=== PATIENT | female | born 1950 | race Caucasian/White ===

== ENCOUNTER → 2016-07-06 | Outpatient (CLI) | payer OTHER ==
[~2016-07-06] MED LIST: ACCUPRIL PO; ACIPHEX; ACTIGALL300 MG PO; ADVAIRDISKUS IH; ALBUTEROL NEB IH; ALBUTEROL2.5 MG/0.1 INH; ALEVE220 MG PO; AMITIZA8 MCG PO; AUGMENTIN 875875 M1 PO; AUGMENTIN 875875 MG PO; BACTRIM DS TAB1 EACH PO; BENADRYL25 MG PO; CELEBREX 200 M200 M1 PO; CELEBREX 200 M200 MG PO; CELECOXIB400 MG PO; CELLCEPT500 MG PO; CENTRUM COMPLE1 EACH PO; CENTRUM SILVER1 EAC4 PO; CINNAMON PO; CINNAMON500 MG PO; CIPRO500 MG PO; CLEOCIN HCL150 MG PO; CLEOCIN HCL300 MG PO; CRANBERRY 4001 EACH PO; CYMBALTA30 MG PO; CYMBALTA60 MG PO; DEXILANT60 MG PO; DOXYCYCLINE 10100 M1 PO; DOXYCYCLINE 10100 MG PO; E-MYCIN250 MG PO; ERYTHROMYCIN250 MG PO; FIBERCON625 M1 PO; FINACEA50 GM TOP; FINACEA50 GM TP; FLOMAX0.4 MG PO; FLOVENT HFA 2220 MC1 INH; GENTAMICIN 0.1%15 G2; GENTAMICIN 0.1%15 G2 TOP; GLUCOPHAGE1000 MG PO; GUAIFENESIN400 MG PO; HYDROCORTISON28.4 G1 TP; HYDROXYCHLOROQ200 M1 PO; IVIG IV; KEFLEX500 MG PO; LIDODERM 5%1 PATC1 TRANSDERM; LIDODERM 5%1 PATCH TOP; LINZESS290 MCG PO; LORTAB 5 MG/5001 TA1 PO; LORTAB 5-500 T1 EAC1 PO; MACROBID 100 M100 M1 PO; MEROPENEM500 MG IV; METAMUCIL0.52 GM PO; NEURONTIN800 MG PO; NEXIUM40 MG PO; OMEGA PO; ONDANSETRON HCL4 M2 PO; OXYCONTIN10 M1 PO; OXYCONTIN15 MG PO; PENICILLIN V P500 MG PO; PENICILLIN VK500 M1 PO; PIPERACIL-TAZO4.5 G1 IV; PREDNISONE 20 M20 MG PO; PREVACID30 M2 PO; PREVACID30 MG PO; PRILOSEC40 MG PO; QUINU10 PD PO; RESTASIS1 EACH GTT; ROCEPHIN 1 GM VL1 G1 IVPB; ROCEPHIN 11 GM/1001 IV; SUDAFED 12 HR120 MG PO; TYLENOL325 MG PO; VANCO IV; VELVET GLOVE PO; VITAMIN D 11000 UNIT PO; VITAMIN D1000 UNI1 PO; VITAMIN D10000 UNIT PO; VYTONE TOP; ZOFRAN ODT4 MG PO; [UNRECOGNIZED DRUG - OTHER]; [UNRECOGNIZED DRUG - OTHER] PO; amoxicillin PO
[2016-07-06 13:57] VITALS: BP 153/79
== END ==
LOC: OPONC 02:03
DX: M35.00 Sjogren syndrome, unspecified (principal); G62.9 Polyneuropathy, unspecified
CPT/HCPCS: 95000; 95001

== ENCOUNTER → 2016-07-07 | Outpatient (CLI) | payer OTHER | LOC: HYPER 06:59 | DX: T81.89XD Other complications of procedures, not elsewhere classified, subsequent encounter (principal); E11.9 Type 2 diabetes mellitus without complications; I70.234 Atherosclerosis of native arteries of right leg with ulceration of heel and midfoot; E66.01 Morbid (severe) obesity due to excess calories; G62.9 Polyneuropathy, unspecified; Z90.710 Acquired absence of both cervix and uterus; Z72.89 Other problems related to lifestyle; Y83.8 Other surgical procedures as the cause of abnormal reaction of the patient, or of later complication, without mention of misadventure at the time of the procedure ==

== ENCOUNTER → 2016-07-28 | Outpatient (CLI) | payer OTHER | LOC: HYPER 07:07 | DX: T81.31XD Disruption of external operation (surgical) wound, not elsewhere classified, subsequent encounter (principal); I70.234 Atherosclerosis of native arteries of right leg with ulceration of heel and midfoot; R60.9 Edema, unspecified; E66.01 Morbid (severe) obesity due to excess calories; Z47.89 Encounter for other orthopedic aftercare; Y83.8 Other surgical procedures as the cause of abnormal reaction of the patient, or of later complication, without mention of misadventure at the time of the procedure ==

== ENCOUNTER → 2016-09-23 | Outpatient (CLI) | payer OTHER | LOC: HYPER 07:39 | DX: T81.32XA Disruption of internal operation (surgical) wound, not elsewhere classified, initial encounter (principal); E11.40 Type 2 diabetes mellitus with diabetic neuropathy, unspecified; M19.90 Unspecified osteoarthritis, unspecified site; I70.234 Atherosclerosis of native arteries of right leg with ulceration of heel and midfoot; R60.9 Edema, unspecified; E66.01 Morbid (severe) obesity due to excess calories; Z47.89 Encounter for other orthopedic aftercare; Y83.8 Other surgical procedures as the cause of abnormal reaction of the patient, or of later complication, without mention of misadventure at the time of the procedure ==

== ENCOUNTER → 2016-09-26 | Outpatient (CLI) | payer OTHER ==
[2016-09-26 08:52] VITALS: BP 163/85
== END ==
LOC: OPONC 08:12
DX: M35.00 Sjogren syndrome, unspecified (principal)
CPT/HCPCS: 95000; 95001

== ENCOUNTER → 2016-10-19 | Outpatient (CLI) | payer OTHER | LOC: HYPER 06:59 | DX: T81.32XA Disruption of internal operation (surgical) wound, not elsewhere classified, initial encounter (principal); I70.234 Atherosclerosis of native arteries of right leg with ulceration of heel and midfoot; E11.621 Type 2 diabetes mellitus with foot ulcer; L97.511 Non-pressure chronic ulcer of other part of right foot limited to breakdown of skin; R60.9 Edema, unspecified; E66.01 Morbid (severe) obesity due to excess calories; Z47.89 Encounter for other orthopedic aftercare; E11.40 Type 2 diabetes mellitus with diabetic neuropathy, unspecified; M19.90 Unspecified osteoarthritis, unspecified site; Y83.8 Other surgical procedures as the cause of abnormal reaction of the patient, or of later complication, without mention of misadventure at the time of the procedure ==

== ENCOUNTER → 2016-10-24 | Outpatient (CLI) | payer OTHER ==
[2016-10-24 10:07] VITALS: BP 136/79
== END ==
LOC: OPONC 08:10
DX: M35.00 Sjogren syndrome, unspecified (principal)
CPT/HCPCS: 95000; 95001

== ENCOUNTER → 2016-11-16 | Outpatient (CLI) | payer OTHER | LOC: HYPER 07:10 | DX: T81.31XD Disruption of external operation (surgical) wound, not elsewhere classified, subsequent encounter (principal); I70.234 Atherosclerosis of native arteries of right leg with ulceration of heel and midfoot; L97.411 Non-pressure chronic ulcer of right heel and midfoot limited to breakdown of skin; E11.621 Type 2 diabetes mellitus with foot ulcer; E66.01 Morbid (severe) obesity due to excess calories; E11.40 Type 2 diabetes mellitus with diabetic neuropathy, unspecified; M19.90 Unspecified osteoarthritis, unspecified site; Z90.710 Acquired absence of both cervix and uterus; Z47.89 Encounter for other orthopedic aftercare; Z72.89 Other problems related to lifestyle; Y83.8 Other surgical procedures as the cause of abnormal reaction of the patient, or of later complication, without mention of misadventure at the time of the procedure ==

== ENCOUNTER → 2016-11-21 | Outpatient (CLI) | payer OTHER ==
[2016-11-21 14:19] VITALS: BP 148/69
== END ==
LOC: OPONC 07:47
DX: M35.00 Sjogren syndrome, unspecified (principal)
CPT/HCPCS: 95000; 95001

== ENCOUNTER → 2016-12-14 | Outpatient (CLI) | payer OTHER | LOC: HYPER 07:10 | DX: T81.31XD Disruption of external operation (surgical) wound, not elsewhere classified, subsequent encounter (principal); I70.234 Atherosclerosis of native arteries of right leg with ulceration of heel and midfoot; E66.01 Morbid (severe) obesity due to excess calories; E11.9 Type 2 diabetes mellitus without complications; E11.42 Type 2 diabetes mellitus with diabetic polyneuropathy; M19.90 Unspecified osteoarthritis, unspecified site; Z98.49 Cataract extraction status, unspecified eye; Z90.710 Acquired absence of both cervix and uterus; Z72.89 Other problems related to lifestyle; Z68.42 Body mass index [BMI] 45.0-49.9, adult; Y83.8 Other surgical procedures as the cause of abnormal reaction of the patient, or of later complication, without mention of misadventure at the time of the procedure ==

== ENCOUNTER → 2016-12-19 | Outpatient (CLI) | payer OTHER ==
[2016-12-19 08:34] VITALS: BP 161/69
== END ==
LOC: OPONC 02:23
DX: M35.00 Sjogren syndrome, unspecified (principal)
CPT/HCPCS: 95000; 95001

== ENCOUNTER → 2017-01-16 | Outpatient (CLI) | payer OTHER ==
[2017-01-16 16:33] VITALS: BP 150/74
== END ==
LOC: OPONC 07:58
DX: G62.9 Polyneuropathy, unspecified (principal)
CPT/HCPCS: 95000; 95001

== ENCOUNTER → 2017-02-21 | Outpatient (CLI) | payer OTHER ==
[~2017-02-21] MED LIST changes: +MYRBETRIQ25 MG PO; +QUINAPRIL 20 MG20 MG PO
[2017-02-21 08:30] VITALS: BP 147/75
== END ==
LOC: OPONC 02-20 08:30
DX: G62.9 Polyneuropathy, unspecified (principal); M35.00 Sjogren syndrome, unspecified
CPT/HCPCS: 95000; 95001

== ENCOUNTER → 2017-03-20 | Outpatient (CLI) | payer OTHER ==
[2017-03-20 14:46] VITALS: BP 154/57
== END ==
LOC: OPONC 06:43
DX: G62.9 Polyneuropathy, unspecified (principal); M35.00 Sjogren syndrome, unspecified
CPT/HCPCS: 95000; 95001

== ENCOUNTER → 2017-04-17 | Outpatient (CLI) | payer OTHER ==
[2017-04-17 09:00] VITALS: BP 126/60
== END ==
LOC: OPONC 00:37
DX: M35.00 Sjogren syndrome, unspecified (principal)
CPT/HCPCS: 95000; 95001

== ENCOUNTER → 2017-05-15 | Outpatient (CLI) | payer OTHER ==
[2017-05-15 11:27] VITALS: BP 140/67
== END ==
LOC: OPONC 00:29
DX: M35.00 Sjogren syndrome, unspecified (principal)
CPT/HCPCS: 95000; 95001

== ENCOUNTER → 2017-06-13 | Outpatient (CLI) | payer OTHER ==
[2017-06-13 10:32] VITALS: BP 152/75
== END ==
LOC: OPONC 00:59
DX: G61.81 Chronic inflammatory demyelinating polyneuritis (principal)
CPT/HCPCS: 95000; 95001

== ENCOUNTER → 2017-07-10 | Outpatient (CLI) | payer OTHER ==
[~2017-07-10] MED LIST changes: +FINACEA50 G1 TOP; +GAMUNEX-C1 GM/10 ML IV; +METFORMIN HCL500 MG PO; +NORCO 5-325 TA1 EACH PO
[2017-07-10 08:48] VITALS: BP 165/65
== END ==
LOC: OPONC 00:17
DX: G61.81 Chronic inflammatory demyelinating polyneuritis (principal)
CPT/HCPCS: 95000; 95001

== ENCOUNTER → 2017-08-14 | Outpatient (CLI) | payer OTHER ==
[2017-08-14 08:52] VITALS: BP 155/69
== END ==
LOC: OPONC 00:31
DX: G61.81 Chronic inflammatory demyelinating polyneuritis (principal)
CPT/HCPCS: 95000; 95001

== ENCOUNTER → 2017-09-11 | Outpatient (CLI) | payer OTHER ==
[2017-09-11 13:27] VITALS: BP 149/64
== END ==
LOC: OPONC 01:27
DX: G61.81 Chronic inflammatory demyelinating polyneuritis (principal)
CPT/HCPCS: 95000; 95001

== ENCOUNTER → 2017-10-09 | Outpatient (CLI) | payer OTHER ==
[~2017-10-09] MED LIST changes: -FINACEA50 G1 TOP; -GAMUNEX-C1 GM/10 ML IV; -METFORMIN HCL500 MG PO; -NORCO 5-325 TA1 EACH PO
[2017-10-09 08:30] VITALS: BP 155/78
== END ==
LOC: OPONC 03:45
DX: G61.81 Chronic inflammatory demyelinating polyneuritis (principal)
CPT/HCPCS: 95000; 95001

== ENCOUNTER → 2017-11-06 | Outpatient (CLI) | payer OTHER ==
[2017-11-06 09:57] VITALS: BP 155/48
== END ==
LOC: OPONC 05:42
DX: G62.9 Polyneuropathy, unspecified (principal); M35.00 Sjogren syndrome, unspecified; G61.81 Chronic inflammatory demyelinating polyneuritis
CPT/HCPCS: 95000; 95001

== ENCOUNTER → 2017-12-04 | Outpatient (CLI) | payer OTHER ==
[~2017-12-04] VITALS: Ht 157.5 cm; Wt 112.9 kg
== END ==
LOC: OPONC 01:31
DX: G62.9 Polyneuropathy, unspecified (principal); M35.00 Sjogren syndrome, unspecified; G61.81 Chronic inflammatory demyelinating polyneuritis
CPT/HCPCS: 95000; 95001

== ENCOUNTER → 2017-12-19 | Outpatient (CLI) | payer OTHER | LOC: NUC 06:59 | DX: M86.8X7 Other osteomyelitis, ankle and foot (principal); M41.86 Other forms of scoliosis, lumbar region; L53.9 Erythematous condition, unspecified; L97.509 Non-pressure chronic ulcer of other part of unspecified foot with unspecified severity ==

== ENCOUNTER → 2018-01-01 | Outpatient (CLI) | payer OTHER ==
[~2018-01-01] MED LIST changes: +FINACEA50 G1 TOP; +GAMUNEX-C1 GM/10 ML IV; +METFORMIN HCL500 MG PO
[2018-01-01 08:36] VITALS: BP 146/77
== END ==
LOC: OPONC 00:36
DX: M35.00 Sjogren syndrome, unspecified (principal); G62.9 Polyneuropathy, unspecified
CPT/HCPCS: 95000; 95001

== ENCOUNTER → 2018-03-22 | Outpatient (CLI) | payer OTHER ==
[~2018-03-22] MED LIST changes: +NORCO 5-325 TA1 EACH PO
== END ==
LOC: HYPER 06:58
DX: E11.621 Type 2 diabetes mellitus with foot ulcer (principal); L97.411 Non-pressure chronic ulcer of right heel and midfoot limited to breakdown of skin; I70.234 Atherosclerosis of native arteries of right leg with ulceration of heel and midfoot; L84 Corns and callosities; E11.42 Type 2 diabetes mellitus with diabetic polyneuropathy; E11.69 Type 2 diabetes mellitus with other specified complication; E66.01 Morbid (severe) obesity due to excess calories; K21.9 Gastro-esophageal reflux disease without esophagitis; M19.90 Unspecified osteoarthritis, unspecified site; M35.00 Sjogren syndrome, unspecified; Z68.42 Body mass index [BMI] 45.0-49.9, adult

== ENCOUNTER → 2018-03-26 | Outpatient (CLI) | payer OTHER ==
[2018-03-26 09:00] VITALS: BP 152/71
== END ==
LOC: OPONC 07:55
DX: M35.00 Sjogren syndrome, unspecified (principal); G62.9 Polyneuropathy, unspecified
CPT/HCPCS: 95000; 95001

== ENCOUNTER → 2018-03-28 | Outpatient (CLI) | payer OTHER | LOC: HYPER 07:04 | DX: E11.621 Type 2 diabetes mellitus with foot ulcer (principal); L97.511 Non-pressure chronic ulcer of other part of right foot limited to breakdown of skin; I70.234 Atherosclerosis of native arteries of right leg with ulceration of heel and midfoot; L97.411 Non-pressure chronic ulcer of right heel and midfoot limited to breakdown of skin; L84 Corns and callosities; E11.40 Type 2 diabetes mellitus with diabetic neuropathy, unspecified; E66.9 Obesity, unspecified; M19.90 Unspecified osteoarthritis, unspecified site; Z68.42 Body mass index [BMI] 45.0-49.9, adult ==

== ENCOUNTER → 2018-04-03 | Outpatient (CLI) | payer OTHER | LOC: HYPER 07:10 | DX: E11.621 Type 2 diabetes mellitus with foot ulcer (principal); L97.411 Non-pressure chronic ulcer of right heel and midfoot limited to breakdown of skin; I70.234 Atherosclerosis of native arteries of right leg with ulceration of heel and midfoot; L84 Corns and callosities; E11.40 Type 2 diabetes mellitus with diabetic neuropathy, unspecified; E11.69 Type 2 diabetes mellitus with other specified complication; E66.01 Morbid (severe) obesity due to excess calories; K21.9 Gastro-esophageal reflux disease without esophagitis; M19.90 Unspecified osteoarthritis, unspecified site; M35.00 Sjogren syndrome, unspecified; Z68.42 Body mass index [BMI] 45.0-49.9, adult ==

== ENCOUNTER → 2018-04-23 | Outpatient (CLI) | payer OTHER ==
[2018-04-23 13:37] VITALS: BP 158/70
== END ==
LOC: OPONC 00:56
DX: G61.81 Chronic inflammatory demyelinating polyneuritis (principal); M35.00 Sjogren syndrome, unspecified
CPT/HCPCS: 95000; 95001

== ENCOUNTER → 2018-04-26 | Outpatient (CLI) | payer OTHER | LOC: HYPER 07:03 | DX: E11.621 Type 2 diabetes mellitus with foot ulcer (principal); I70.235 Atherosclerosis of native arteries of right leg with ulceration of other part of foot; L97.511 Non-pressure chronic ulcer of other part of right foot limited to breakdown of skin; L84 Corns and callosities; E11.40 Type 2 diabetes mellitus with diabetic neuropathy, unspecified; E66.01 Morbid (severe) obesity due to excess calories; E66.9 Obesity, unspecified; K21.9 Gastro-esophageal reflux disease without esophagitis; M35.00 Sjogren syndrome, unspecified; M19.90 Unspecified osteoarthritis, unspecified site; Z68.42 Body mass index [BMI] 45.0-49.9, adult ==

== ENCOUNTER → 2018-05-28 | Outpatient (CLI) | payer OTHER | LOC: OPONC 00:58 | DX: G61.81 Chronic inflammatory demyelinating polyneuritis (principal); M35.00 Sjogren syndrome, unspecified | CPT/HCPCS: 95000; 95001 ==

== ENCOUNTER → 2018-06-14 | Outpatient (CLI) | payer OTHER | LOC: HYPER 07:14 | DX: E11.621 Type 2 diabetes mellitus with foot ulcer (principal); I70.234 Atherosclerosis of native arteries of right leg with ulceration of heel and midfoot; L97.511 Non-pressure chronic ulcer of other part of right foot limited to breakdown of skin; E11.40 Type 2 diabetes mellitus with diabetic neuropathy, unspecified; L84 Corns and callosities; E66.01 Morbid (severe) obesity due to excess calories; M19.90 Unspecified osteoarthritis, unspecified site; Z68.42 Body mass index [BMI] 45.0-49.9, adult ==

== ENCOUNTER → 2018-06-28 | Outpatient (CLI) | payer OTHER ==
[2018-06-28 09:46] VITALS: BP 160/79
== END ==
LOC: OPONC 06-27 10:02
DX: G61.81 Chronic inflammatory demyelinating polyneuritis (principal)
CPT/HCPCS: 95000; 95001

== ENCOUNTER → 2018-07-16 | Outpatient (CLI) | payer OTHER | LOC: HYPER 06:57 | DX: E11.621 Type 2 diabetes mellitus with foot ulcer (principal); I70.234 Atherosclerosis of native arteries of right leg with ulceration of heel and midfoot; L97.411 Non-pressure chronic ulcer of right heel and midfoot limited to breakdown of skin; E11.40 Type 2 diabetes mellitus with diabetic neuropathy, unspecified; E66.01 Morbid (severe) obesity due to excess calories; E66.9 Obesity, unspecified; K21.9 Gastro-esophageal reflux disease without esophagitis; M19.90 Unspecified osteoarthritis, unspecified site; M35.00 Sjogren syndrome, unspecified; Z68.42 Body mass index [BMI] 45.0-49.9, adult ==

== ENCOUNTER → 2018-07-23 | Outpatient (CLI) | payer OTHER ==
[2018-07-23 08:20] VITALS: BP 149/65
--- NOTE | 2018-07-23 13:42 | NUR ---
IN FOR MONTHLY GAMUNEX INFUSION. STATED FEELING WELL. S/P RIGHT SHOULDER REPLACEMENT. RANGE OF MOTION IMPROVING AND ABLE TO CUT HER OWN MEAT AND WIPE HERSELF NOW. PATIENT IS VERY HAPPY ABOUT THIS. TITRATED GAMUNEX PER PROTOCOL WITH MAX RATE OF 145ML/HR AND TOLERATED WELL WITHOUT INCIDENT. SCHEDULED TO RETURN AUG.20 AT 0800 FOR NEXT INFUSION. DISMISSED IN STABLE CONDITION.
== END ==
LOC: OPONC 07-20 10:51
DX: G61.81 Chronic inflammatory demyelinating polyneuritis (principal)
CPT/HCPCS: 95000; 95001

== ENCOUNTER → 2018-08-06 | Outpatient (CLI) | payer OTHER | LOC: HYPER 07:19 | DX: E11.621 Type 2 diabetes mellitus with foot ulcer (principal); I70.234 Atherosclerosis of native arteries of right leg with ulceration of heel and midfoot; L97.411 Non-pressure chronic ulcer of right heel and midfoot limited to breakdown of skin; L84 Corns and callosities; E11.69 Type 2 diabetes mellitus with other specified complication; M86.8X8 Other osteomyelitis, other site; E11.40 Type 2 diabetes mellitus with diabetic neuropathy, unspecified; E66.01 Morbid (severe) obesity due to excess calories; E66.9 Obesity, unspecified; G60.3 Idiopathic progressive neuropathy; M19.90 Unspecified osteoarthritis, unspecified site; M35.00 Sjogren syndrome, unspecified; Z68.42 Body mass index [BMI] 45.0-49.9, adult; Z98.49 Cataract extraction status, unspecified eye; Z90.49 Acquired absence of other specified parts of digestive tract; Z96.611 Presence of right artificial shoulder joint ==

== ENCOUNTER → 2018-08-21 | Outpatient (CLI) | payer OTHER ==
[2018-08-21 08:35] VITALS: BP 157/74
--- NOTE | 2018-08-21 14:17 | NUR ---
HERE FOR MONTHLY GAMUNEX C INFUSION. REPORTS DOING WELL. HEALING WELL FROM HER RIGHT SHOULDER REPLACEMENT AND SO PLEASED WITH ITS SUCCESS. STATES NO MORE PAIN AND GOOD ROM. NO OTHER CONCERNS NOTED. TOOK OWN PREMEDS. GAMUNEX C INFUSED OVER 5H, 2O MIN TITRATED UP SLOWLY TO MAX OF 140/H. PT TOLERATED WITHOUT INCIDENT. DISMISSED IN STABLE CONDITION. SCHEDULED TO RETURN AGAIN IN 4 WEEKS.
== END ==
LOC: OPONC 08-20 09:32
DX: G61.81 Chronic inflammatory demyelinating polyneuritis (principal); G62.9 Polyneuropathy, unspecified; M35.00 Sjogren syndrome, unspecified
CPT/HCPCS: 95000; 95001

== ENCOUNTER → 2018-09-05 | Outpatient (CLI) | payer OTHER | LOC: MRI 09:18 | DX: M48.02 Spinal stenosis, cervical region (principal); M50.10 Cervical disc disorder with radiculopathy, unspecified cervical region; E11.65 Type 2 diabetes mellitus with hyperglycemia ==

== ENCOUNTER → 2018-09-12 | Outpatient (CLI) | payer OTHER ==
[~2018-09-12] VITALS: Ht 157.5 cm; Wt 118.8 kg
[~2018-09-12] MED LIST changes: +[UNRECOGNIZED DRUG - OTHER] TOP
[2018-09-12 10:20] VITALS: BP 172/82
--- NOTE | 2018-09-12 10:30 | NUR ---
Pain Clinic Assessment: 1. History of Osteoarthritis: History of Rheumatoid Arthritis: 2. Height: 5 ft. 2 in. 157.5 cm. Weight: 262.0 lb. oz. 118.843 kg. Patient's BMI: 47.9 3. Vital Signs: BP: 172/82 Pulse: 87 Resp: 16 Temp: 02 Sat: 95 ECG Mon: 4. Pain Intensity: 1-2 5. Fall Risk: Dizziness: N Needs help standing or walking: N Fallen in the last 3 months: N Fall risk comments: 6. Patient on Blood Thinner: None 7. History of Hypertension: Y 8. Opioid Therapy greater than 6 weeks: Y Opiate Contract Signed: 9. Risk Assessment Tool Provided: LOW 10. Functional Assessment Tool: 11. Recreational Drug Use: Never Drug Type: Tobacco Use: Never Smoker Tobacco Type: Amount or Packs/day: How Many Years: Alcohol Use: Yes Frequency: Special Occasions Quant:
--- NOTE | 2018-09-25 08:14 | HPC ---
[facility] [address] [place] [address] PAIN MANAGEMENT CONSULTATION Name: SCOT NANCE Room #: REG WINSOME HerediaKatjaNicoleKatja#: [id number] Admission: 09/12/18 ������������������ Attend Phys: Anthony Napoles DO Discharge: ������������������ Date of : 48 Report #: [id number] THIS REPORT FOR: //name// CC: Anthony Aceves DATE OF SERVICE: 09/12/2018 REFERRING PHYSICIAN: Jose M Barker M.D. CHIEF COMPLAINT: Low back pain and bilateral lower extremity pain with paresthesias. HISTORY OF PRESENT ILLNESS: As you know, the patient is a 68-year-old female who reports longstanding history of low back pain and bilateral lower extremity pain with paresthesias. She indicates pain exacerbated without inciting injury or trauma in April of 2018. She has been experiencing pain in that area since that time. The patient apparently sought evaluation through her primary care physician, Dr. Jose M Barker who sent the patient for imaging of the cervical spine, the findings were such, the patient was referred to our clinic to discuss treatment options for cervical radiculopathy. The patient today does not report any neck pain is only concerned of low back pain and bilateral lower extremity pain. The patient indicates today pain is periodic, describes the pain as sharp, places current pain score 1-2/10, daily average at 3/10, worst the pain has been is 10/10. 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 Pain is improved with standing, repositioning. She states pain typically is present in the morning and late afternoon. She has been referred to our service for cervical radiculopathy but is complaining only of axial back pain and lower extremity symptoms today. PAST MEDICAL HISTORY: 1. Gastroesophageal reflux disease. 2. Sjogren's syndrome. 3. Chronic inflammatory demyelinating polyneuropathy. 4. Osteoarthritis. 5. Diabetes mellitus type 2 with diabetic neuropathy. 6. Drug-induced constipation. 7. Cervical radiculopathy. PAST SURGICAL HISTORY: 1. In 2012, lumbar laminectomy. 2. Appendectomy. [facility] [address] [place] [address] PAIN MANAGEMENT CONSULTATION Name: SCOT NANCE Room #: REG [facility] Markell.#: [id number] Admission: 09/12/18 ������������������ Attend Phys: Anthony Napoles DO Discharge: ������������������ Date of : 48 Report #: [id number] 3. Ovarian wedge resection. 4. Tonsillectomy. 5. Total abdominal hysterectomy. 6. Carpal tunnel release. 7. Foot surgery. 8. Rotator cuff repair. 9. Arthroplasty, right great toe. 10. Bilateral cataract removal. 11. Left thumb surgery. 12. Right shoulder surgery. SOCIAL HISTORY: The patient denies tobacco or IV or illicit drug use. Admits to 2-3 alcohol beverages per year. 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 This patient is not in litigation in regards to pain. She is unaccompanied today. REVIEW OF SYSTEMS: Positive for weight gain, fatigue and weakness, blurred and double vision, history of cataracts status post excision, hearing loss with tinnitus, voice changes, asthma, wheezing, constipation, frequent urination, nocturia, incontinence and dribbling to urine, change of force or stream urination, sexual difficulty, changes in hair and nail textures, rash and itching, varicose veins, numbness and tingling sensations, tremors, head injury, glandular and hormonal problems, diabetes mellitus type 2, excessive thirst, urination, heat and cold intolerance. All other review of systems negative per 12-point review of systems other than those listed in history of present illness. PAIN SCORE: Pain impact score 15/70 indicating mild interference of daily activities secondary to pain. ALLERGIES: METOCLOPRAMIDE, NITROFURANTOIN, SULFA, NEOMYCIN, CIPROFLOXACIN, THIMEROSAL, IODINE, TAZOBACTAM, NORTRIPTYLINE, PIPERACILLIN, POLYMYXIN, LEVOFLOXACIN, LATEX, AVOCADO and BACITRACIN. CURRENT MEDICATIONS: FiberCon 1 tab per day, IVIG infusions monthly, hydrocortisone apply topically once a day, hydrocodone/acetaminophen 5/325 one tab p.o. q. 4 hours p.r.n. for pain, Finacea apply topically once a day, metformin 500 mg twice a day, Myrbetriq 25 mg per day, CellCept 500 mg twice a day, quinapril 20 mg twice a day, lansoprazole 30 mg per day, multivitamin 1 tab per day, tamsulosin 0.4 mg twice a day, celecoxib 200 mg once a day, Plaquenil 200 mg twice a day, duloxetine 60 mg once a day, cinnamon 500 mg twice a day, cholecalciferol 1000 units once a day, oxycodone ER 15 mg twice a day, calcium carbonate 1 tab per day, Restasis one drop each eye twice a day and gabapentin 800 mg 4 times a day. IMAGING DATA: MRI of cervical spine obtained on 09/05/2018 shows [address] [address] PAIN MANAGEMENT CONSULTATION Name: SCOT NANCE Room #: REG WINSOME Loza#: [id number] Admission: 09/12/18 ������������������ Attend Phys: Anthony Napoles DO Discharge: ������������������ Date of : 48 Report #: [id number] cervical lordosis. There is a slight anterolisthesis of C7 on T1. There is moderate posterior disk osteophyte complex at C5-C6, which extends posteriorly to the level of the C5 vertebral body, [id number] bulge at C4-C5, which extends to the posterior C4 body producing mild compression of the cord but no underlying cord signal abnormalities and multilevel moderate bony foraminal impingements. There is no imaging of the lumbar spine. PQRS: The patient has known osteoarthritic changes of the cervical area, bilateral hips and bilateral knees. No definitive rheumatoid arthritis diagnosis. She is placing pain intensity 1-2/10. She is not a fall risk, has not had a fall in the last 3 months. She is on a blood thinner. She is treated for hypertension. She is on chronic opioids being provided by her PCP. She has a [id number]-[id number] risk for opioid abuse and addiction. She is placing pain impact score 15/70, mild interference of daily activities secondary to pain. PHYSICAL EXAMINATION: VITAL SIGNS: Blood pressure 172/82, pulse 87 and respiratory rate 16 and unlabored. The patient is 95% on room air. Height 5 feet 2 inches tall, weight 262.0 pounds and BMI calculated 47.9. GENERAL: Well-developed, well-nourished and well-hydrated, class 3 morbidly obese 68-year-old female appearing stated age, placing pain score today 1-2/10. HEENT: Normocephalic and atraumatic. Pupils equal, round and reactive to light. Extraocular muscles are intact. Sclerae nonicteric without injection. NEUROLOGICAL: Speech is fluent for patient. She is deemed a good historian. LUNGS: Clear. She is able to talking in complete sentences. She is not showing any symptoms of respiratory depression. CARDIOVASCULAR: Regular. Normal S1 and S2. ABDOMEN: Soft. Severely obese. Bowel sounds are present. EXTREMITIES: Show no clubbing, no cyanosis and no edema. MUSCULOSKELETAL: Lower extremity strength appears equal and symmetrical 5/5. She is intact to light touch from L1 through S2 dermatomes. Seated straight leg raising negative. Supine straight leg raising equivocal. Modified Gaenslen's positive for axial low back pain. Ankle clonus negative. Babinski is negative. Muscle bulk and tone appears symmetrical in comparing left lower extremity over right. Gait appears mildly antalgic. There is a noted loss of lordotic curvature with stance. ASSESSMENT: 1. Chronic low back pain. 2. Lumbosacral spondylosis without definitive radiculopathy. 3. Facet arthropathy of the lumbar spine. 4. Degeneration of the lumbar spine. 5. Chronic intractable pain. [address] [address] PAIN MANAGEMENT CONSULTATION Name: LEE ANNSCOT A Room #: REG Flor Loza#: [id number] Admission: 09/12/18 ������������������ Attend Phys: Anthony Napoles DO Discharge: ������������������ Date of : 48 Report #: [id number] PLAN: 1. The patient has been referred to our clinic initially for cervical radiculopathy, though the patient at this point is describing no pain in the neck or in a cervical radicular distribution. Her symptoms are related to the low back and bilateral lower extremities. She comes to us today with imaging from the cervical spine, which showed typical changes for a 68-year-old female, given her history, there are arthritic changes, disk desiccation and some mild spinal stenosis, which are not atypical findings in an individual her age. She does not come with any imaging of the lumbar spine for which the patient is referring to her main pain generator today. We discussed in generalities the treatment options that we would provide for cervical radiculopathy before addressing her lumbar issues. We discussed the following today. We discussed physical therapy, stretching exercises, core strengthening and traction techniques. This would be a conservative way to treat her cervical symptoms without radiculopathy. We discussed medication management with escalating her dose of Neurontin and utilizing anti-inflammatories if at all possible. She is currently on opioids. I do not feel adjustments in those medications would be necessary. We discussed cervical epidural injections if she does begin to present with cervical radicular symptoms and surgical options. After that discussion, the patient chose to consider options for low back before considering cervical treatment. 2. We discussed low back concerns that she has today. She states that she believes she has a spondylolisthesis in the lumbar spine, though I do not have imaging to confirm. If she truly does have a spondylolisthesis, I would recommend at least x-ray imaging to initiate imaging studies. If this shows changes significant enough, I would recommend the patient have an MRI of the lumbar spine. This could be done through her PCP. We will have the patient undergo x-ray imaging today. This will help us to determine the amount of pathology that may exist in the lumbar region. The patient denies any injury or trauma. So we would assume we will find a typical arthritic changes, age-related and a body habitus related findings. The patient does have a BMI of 47.6, putting her higher risk of osteoarthritic changes of the lumbar spine and disk desiccation, which is typically more rapid than individuals at a more optimal weight. We will send the patient for the x-ray imaging once these are available. The patient can contact our clinic to find the results. If pathologic movement is noted in the x-ray imaging, we will contact the patient to be seen by Neurosurgery as quickly as possible. 3. We made no changes in the patient's medication management at this visit. We would recommend continuing current dosing of therapy. 4. The patient can contact our clinic over the next couple of days for the findings of her x-ray imaging. If no specific pathology is noted, we would recommend moving forward with an MRI of the lumbar spine. Once she has completed that she can return to our clinic and we will review the findings and discuss more definitive treatment options if radiculopathy or spinal stenosis is noted. [address] [address] PAIN MANAGEMENT CONSULTATION Name: SCOT NANCE Room #: REG [facility] Dago#: [id number] Admission: 09/12/18 ������������������ Attend Phys: Anthony Napoles DO Discharge: ������������������ Date of : 48 Report #: [id number] 5. We wish to thank Dr. Barker for the referral of the patient to our clinic. We will keep you apprised of any treatment options deem necessary to address her axial back pain issues. At present, we will have the patient undergo imaging if the imaging again is negative for any specific pathology. We would recommend the patient move forward with an MRI. We will defer to the primary team for this MRI request. Once it is completed, she can return and we will review the findings. Again, we wish to thank Dr. Barker for the referral of the patient to this clinic. ��������������������������������������������� <ELECTRONICALLY SIGNED> ���������������������������������������� By: Anthony Napoles DO ��������������������������������������������� 09/25/18 0814 0850 [id number] Anthony Napoles DO /nt
== END ==
LOC: RAD 07:06 → PAIN 07:06
DX: M47.816 Spondylosis without myelopathy or radiculopathy, lumbar region (principal)

== ENCOUNTER → 2018-09-17 | Outpatient (CLI) | payer OTHER ==
[2018-09-17 13:40] VITALS: BP 158/65
--- NOTE | 2018-09-17 13:55 | NUR ---
IN FOR MONTHLY GAMUNEX C INFUSION. STATED FEELING WELL. HAS NOT HAD A FALL IN OVER 3 MONTHS. TITRATED GAMUNEX C PER PROTOCOL WITH MAX RATE OF 135ML/HR AND TOLERATED WELL. PATIENT TOOK OWN PREMEDS PRIOR TO ARRIVAL. TO RETURN ON OCTOBER 15 FOR NEXT INFUSION. DISMISSED IN STABLE CONDITION.
== END ==
LOC: OPONC 00:27
DX: G61.81 Chronic inflammatory demyelinating polyneuritis (principal); M35.00 Sjogren syndrome, unspecified
CPT/HCPCS: 95000; 95001

== ENCOUNTER → 2018-09-18 | Outpatient (CLI) | payer OTHER | LOC: HYPER 06:51 | DX: E11.621 Type 2 diabetes mellitus with foot ulcer (principal); L97.511 Non-pressure chronic ulcer of other part of right foot limited to breakdown of skin; I70.234 Atherosclerosis of native arteries of right leg with ulceration of heel and midfoot; L97.411 Non-pressure chronic ulcer of right heel and midfoot limited to breakdown of skin; E11.40 Type 2 diabetes mellitus with diabetic neuropathy, unspecified; L84 Corns and callosities; E66.01 Morbid (severe) obesity due to excess calories; M19.90 Unspecified osteoarthritis, unspecified site; Z68.42 Body mass index [BMI] 45.0-49.9, adult ==

== ENCOUNTER → 2018-09-19 | Outpatient (CLI) | payer OTHER | LOC: MRI 13:56 | DX: M47.26 Other spondylosis with radiculopathy, lumbar region (principal); M51.16 Intervertebral disc disorders with radiculopathy, lumbar region; M41.86 Other forms of scoliosis, lumbar region; M43.16 Spondylolisthesis, lumbar region; M48.062 Spinal stenosis, lumbar region with neurogenic claudication; M51.27 Other intervertebral disc displacement, lumbosacral region; M51.37 Other intervertebral disc degeneration, lumbosacral region ==

== ENCOUNTER → 2018-10-03 | Outpatient (CLI) | payer OTHER | LOC: RAD 14:20 | DX: M41.86 Other forms of scoliosis, lumbar region (principal); M47.816 Spondylosis without myelopathy or radiculopathy, lumbar region; M50.322 Other cervical disc degeneration at C5-C6 level ==

== ENCOUNTER → 2018-10-09 | Outpatient (CLI) | payer OTHER ==
[~2018-10-09] VITALS: Ht 157.5 cm; Wt 122.3 kg
[2018-10-09 08:44] VITALS: BP 166/85
--- NOTE | 2018-10-09 09:04 | NUR ---
Pain Clinic Assessment: 1. History of Osteoarthritis: NECK LUMBAR SPINE B/L HANDS B/L SHOULDERS B/L KNEES B/L FEET History of Rheumatoid Arthritis: NONE 2. Height: 5 ft. 2 in. 157.5 cm. Weight: 269.6 lb. oz. 122.290 kg. Patient's BMI: 49.3 3. Vital Signs: BP: 166/85 Pulse: 89 Resp: 20 Temp: 02 Sat: 97 ECG Mon: 4. Pain Intensity: 4-5-AVG, 8-9-WORST 5. Fall Risk: Dizziness: N Needs help standing or walking: Y Fallen in the last 3 months: N Fall risk comments: 6. Patient on Blood Thinner: None 7. History of Hypertension: Y 8. Opioid Therapy greater than 6 weeks: Y Opiate Contract Signed: 9. Risk Assessment Tool Provided: TERRANCE 10. Functional Assessment Tool: 11. Recreational Drug Use: Never Drug Type: Tobacco Use: Never Smoker Tobacco Type: Amount or Packs/day: How Many Years: Alcohol Use: Yes Frequency: Special Occasions Quant: 1-2
== END | disposition home or self-care (01) ==
LOC: PAIN 06:47
DX: M54.16 Radiculopathy, lumbar region (principal); G89.29 Other chronic pain; Z98.890 Other specified postprocedural states; Z88.2 Allergy status to sulfonamides; Z91.040 Latex allergy status; Z88.8 Allergy status to other drugs, medicaments and biological substances; Z79.899 Other long term (current) drug therapy

== ENCOUNTER → 2018-10-15 | Outpatient (CLI) | payer OTHER ==
[2018-10-15 10:06] VITALS: BP 176/65
--- NOTE | 2018-10-15 14:22 | NUR ---
IN FOR MONTHLY GAMUNEX C INFUSION. STATED FEELING WELL TODAY. MINIMAL PAIN TO FINGERS AND FEET. TITRATED GAMUNEX C PER PROTOCOL WITH MAX RATE OF 125ML/HR AND TOLERATED WELL WITHOUT INCIDENT. REMOVED IV AND DISMISSED IN STABLE CONDITION.
== END ==
LOC: OPONC 08:07
DX: G61.81 Chronic inflammatory demyelinating polyneuritis (principal); M35.00 Sjogren syndrome, unspecified
CPT/HCPCS: 95000; 95001

== ENCOUNTER → 2018-11-12 | Outpatient (CLI) | payer OTHER ==
[2018-11-12 09:00] VITALS: BP 163/75
--- NOTE | 2018-11-12 16:15 | NUR ---
HERE FOR MONTHLY GAMUNEX C INFUSION. SUFFERING RECENTLY FROM BACK ISSUES AND IS AWAITING COMPLEX BACK SURGERY NOW SCHEDULED FOR 12/12/18 AT [facility]. TOOK OWN PREMEDS OF ALEVE AND BENADRYL PRIOR TO ARRIVAL. GAMUNEX C INFUSED OVER NEARLY 6 HOURS TITRATED SLOWLY TO MAX RATE OF 125ML/H. NEAR COMPLETION PT STARTED C/O SUDDEN ONSET OF NAUSEA AND FELT LIKE SHE WAS GOING TO VOMIT. NO HEADACHE OR OTHER SYMPTOMS ASSOCIATED WITH THIS. PT AND NURSE CANNOT DETERMINE CAUSE OF SUDDEN NAUSEA. NOTIFIED DR. ZALDIVAR THROUGH NURSE ZENAIDA AND RECEIVED ORDER FOR ZOFRAN. INITIAL DOSE GIVEN WITH NEAR COMPLETE RESOLUTION OF NAUSEA BUT PT DID WANT THE 2ND DOSE JUST FOR ASSURANCE. TOTAL OF 2 DOSES OF ZOFRAN GIVEN PRIOR TO DISMISSAL. PT STATES SHE DOES HAVE ORAL ZOFRAN AT HOME IF NEEDED. LET PT KNOW SHE SHOULD NOT REPEAT FOR AT LEAST 6 HOURS. DISMISSED IN STABLE CONDITION. SCHEDULED TO RETURN IN 4 WEEKS.
== END ==
LOC: OPONC 00:27
DX: G61.81 Chronic inflammatory demyelinating polyneuritis (principal)
CPT/HCPCS: 95000; 95001

== ENCOUNTER → 2018-11-14 | Outpatient (CLI) | payer OTHER ==
[~2018-11-14] VITALS: Ht 157.5 cm; Wt 124.9 kg
[2018-11-14 09:35] VITALS: BP 164/84
--- NOTE | 2018-11-14 09:46 | NUR ---
Pain Clinic Assessment: 1. History of Osteoarthritis: NECK LUMBAR SPINE B/L HANDS B/L SHOULDERS B/L KNEES B/L FEET History of Rheumatoid Arthritis: NONE 2. Height: 5 ft. 2 in. 157.5 cm. Weight: 275.4 lb. oz. 124.921 kg. Patient's BMI: 50.4 3. Vital Signs: BP: 164/84 Pulse: 77 Resp: 20 Temp: 02 Sat: 99 ECG Mon: 4. Pain Intensity: 3-4,TODAY 8-9-WORST 5. Fall Risk: Dizziness: N Needs help standing or walking: Y Fallen in the last 3 months: Y Fall risk comments: 6. Patient on Blood Thinner: None 7. History of Hypertension: Y 8. Opioid Therapy greater than 6 weeks: Y Opiate Contract Signed: 9. Risk Assessment Tool Provided: TERRANCE 10. Functional Assessment Tool: 11. Recreational Drug Use: Never Drug Type: Tobacco Use: Never Smoker Tobacco Type: Amount or Packs/day: How Many Years: Alcohol Use: Yes Frequency: Quant:
== END | disposition home or self-care (01) ==
LOC: PAIN 09:02
DX: M54.16 Radiculopathy, lumbar region (principal); G89.29 Other chronic pain; E11.65 Type 2 diabetes mellitus with hyperglycemia; Z98.890 Other specified postprocedural states; Z91.040 Latex allergy status; Z88.8 Allergy status to other drugs, medicaments and biological substances; Z79.899 Other long term (current) drug therapy

== ENCOUNTER → 2019-02-11 | Outpatient (CLI) | payer OTHER ==
[~2019-02-11] MED LIST changes: +APAP650 PO; -CRANBERRY 4001 EACH PO; +CRANBERRY450 M1 PO; +DULCOLAX10 MG RECTAL; +LIDOCAINE PAIN1 EACH TRANSDERM; -METFORMIN HCL500 MG PO; +METHOCARBAMOL750 MG PO; +MILK OF MA400 MG/5 M PO; +NORVASC5 MG PO; +OXYCODONE HCL10 MG PO; +ROBAXIN 750 MG750 MG PO
[2019-02-11 08:40] VITALS: BP 121/61
--- NOTE | 2019-02-11 14:40 | NUR ---
IN FOR MONTHLY GAMUNEX C. A WEEK LATE [facility] PT LOOKS FANTASTIC. WALKED INTO CLINIC WITH USE OF HER WALKER AND WAS ABLE TO USE ONLY STANDBY ASSIST TO GET TO AND FROM BATHROOM TODAY. STATES BACK PAIN IS NOW GONE AND SHE FEELS SO MUCH BETTER. UNFORTUNATELY THE REHAB HAS AGGRAVATED HER LEFT SHOULDER BUT NO OTHER CONCERNS NOTED. PT TOOK OWN PREMEDS. GAMUNEX C INFUSED OVER ABOUT 6 HOURS STARTING AT 25ML/H THEN TITRATED TO MAX OF 125/H. TOLERATED WITHOUT INCIDENT, NO S/S REACTION. DISMISSED IN STABLE CONDITION. WALKED WITH PT TO THE C ENTRANCE TO MEET . SCHEDULED TO RETURN IN 4 WEEKS.
== END ==
LOC: OPONC 02-04 15:00
DX: G61.81 Chronic inflammatory demyelinating polyneuritis (principal)
CPT/HCPCS: 95000; 95001

== ENCOUNTER → 2019-03-11 | Outpatient (CLI) | payer OTHER ==
[2019-03-11 09:57] VITALS: BP 156/72
--- NOTE | 2019-03-11 15:16 | NUR ---
IN FOR Q4WEEK GAMUNEX C INFUSION FOR CIDP/SJOGRENS SYNDROME/POLYNEUROPATHY. PATIENT STATED FEELING WELL TODAY. USING ROLLER WALKER FOR AMBULATION. PATIENT TOOK OWN PREMEDS OF TYLENOL AND BENADRYL. TITRATED GAMUNEX C PER PROTOCOL WITH MAX RATE OF 125ML/HR AND TOLERATED WELL WITHOUT INCIDENT. SCHEDULED FOR NEXT APPT. DISMISSED IN GOOD CONDITION.
== END ==
LOC: OPONC 08:11
DX: G61.81 Chronic inflammatory demyelinating polyneuritis (principal); R94.39 Abnormal result of other cardiovascular function study; E13.9 Other specified diabetes mellitus without complications
CPT/HCPCS: 95000; 95001

== ENCOUNTER → 2019-03-12 | Outpatient (CLI) | payer OTHER ==
--- NOTE | 2019-03-12 09:05 | NUR ---
PT ARRIVES AND AMBULATES TO CV HOLDING RM 5. 18 GAUGE IV STARTED RT AC. TEMP 98.5; HR 71; BP 157/71; R 16. PT GIVEN 150 MG PO METOPROLOL AND NS STARTED. CREATININE ORDERED
[2019-03-12 10:30] VITALS: BP 151/64
== END ==
LOC: CAT 07:54
DX: I25.10 Atherosclerotic heart disease of native coronary artery without angina pectoris (principal); Z91.040 Latex allergy status; Z88.8 Allergy status to other drugs, medicaments and biological substances; Z88.2 Allergy status to sulfonamides

== ENCOUNTER → 2019-04-08 | Outpatient (CLI) | payer OTHER ==
[2019-04-08 08:34] VITALS: BP 148/68
--- NOTE | 2019-04-08 14:10 | NUR ---
HERE FOR MONTHLY GAMUNEX C INFUSION. REPORTS DOING VERY WELL. MOVING WELL, SO PLEASED WITH RESULTS OF BACK SURGERY. NO AWAITING L SHOULDER REPLACEMENT SCHEDULED FOR . TOOK OWN PREMEDS THIS MORNING PRIOR TO ARRIVAL. TITRATED GAMUNEX C TO MAX OF 120/H, PT TOLERATED WELL, NO S/S REACTION. DISMISSED IN STABLE CONDITION. SCHEDULED TO RETURN IN ONE MONTH.
== END ==
LOC: OPONC 00:43
DX: G61.81 Chronic inflammatory demyelinating polyneuritis (principal); M35.00 Sjogren syndrome, unspecified
CPT/HCPCS: 95000; 95001

== ENCOUNTER → 2020-09-08 | Outpatient (CLI) | payer OTHER | LOC: HYPER 14:03 | PROVIDERS: ATTEND Emergency Medicine | DX: E11.621 Type 2 diabetes mellitus with foot ulcer (principal); I83.015 Varicose veins of right lower extremity with ulcer other part of foot; L97.512 Non-pressure chronic ulcer of other part of right foot with fat layer exposed; E11.43 Type 2 diabetes mellitus with diabetic autonomic (poly)neuropathy; E11.610 Type 2 diabetes mellitus with diabetic neuropathic arthropathy; M21.372 Foot drop, left foot; E11.69 Type 2 diabetes mellitus with other specified complication; M86.9 Osteomyelitis, unspecified; M24.575 Contracture, left foot; B35.1 Tinea unguium; M79.675 Pain in left toe(s); M79.674 Pain in right toe(s); L84 Corns and callosities; M19.90 Unspecified osteoarthritis, unspecified site; M35.00 Sjogren syndrome, unspecified; L03.032 Cellulitis of left toe; M48.00 Spinal stenosis, site unspecified; M41.9 Scoliosis, unspecified; E66.9 Obesity, unspecified; Z68.41 Body mass index [BMI] 40.0-44.9, adult; Z86.14 Personal history of Methicillin resistant Staphylococcus aureus infection; Z79.84 Long term (current) use of oral hypoglycemic drugs; Z79.899 Other long term (current) drug therapy; Z98.890 Other specified postprocedural states; Z96.611 Presence of right artificial shoulder joint; Z96.612 Presence of left artificial shoulder joint; Z90.49 Acquired absence of other specified parts of digestive tract; Z98.49 Cataract extraction status, unspecified eye; Z90.710 Acquired absence of both cervix and uterus ==

== ENCOUNTER → 2020-09-15 | Outpatient (CLI) | payer OTHER | LOC: HYPER 09:51 | PROVIDERS: ATTEND Emergency Medicine | DX: E11.621 Type 2 diabetes mellitus with foot ulcer (principal); I83.018 Varicose veins of right lower extremity with ulcer other part of lower leg; L97.512 Non-pressure chronic ulcer of other part of right foot with fat layer exposed; L03.032 Cellulitis of left toe; L84 Corns and callosities; E11.610 Type 2 diabetes mellitus with diabetic neuropathic arthropathy; E11.69 Type 2 diabetes mellitus with other specified complication; M86.9 Osteomyelitis, unspecified; E11.43 Type 2 diabetes mellitus with diabetic autonomic (poly)neuropathy; M24.575 Contracture, left foot; M21.372 Foot drop, left foot; M79.675 Pain in left toe(s); M79.674 Pain in right toe(s); B35.1 Tinea unguium; E66.9 Obesity, unspecified; K21.9 Gastro-esophageal reflux disease without esophagitis; M19.90 Unspecified osteoarthritis, unspecified site; M35.00 Sjogren syndrome, unspecified; M48.00 Spinal stenosis, site unspecified; Z68.41 Body mass index [BMI] 40.0-44.9, adult; Z96.611 Presence of right artificial shoulder joint; Z90.49 Acquired absence of other specified parts of digestive tract; Z98.49 Cataract extraction status, unspecified eye; Z90.710 Acquired absence of both cervix and uterus; Z79.84 Long term (current) use of oral hypoglycemic drugs ==

== ENCOUNTER → 2020-09-17 | Outpatient (CLI) | payer OTHER | LOC: HYPER 10:25 | PROVIDERS: ATTEND Emergency Medicine | DX: E11.621 Type 2 diabetes mellitus with foot ulcer (principal); I83.015 Varicose veins of right lower extremity with ulcer other part of foot; L97.512 Non-pressure chronic ulcer of other part of right foot with fat layer exposed; L03.032 Cellulitis of left toe; L84 Corns and callosities; E11.43 Type 2 diabetes mellitus with diabetic autonomic (poly)neuropathy; E11.610 Type 2 diabetes mellitus with diabetic neuropathic arthropathy; E11.69 Type 2 diabetes mellitus with other specified complication; M86.9 Osteomyelitis, unspecified; B35.1 Tinea unguium; K21.9 Gastro-esophageal reflux disease without esophagitis; M21.372 Foot drop, left foot; M24.575 Contracture, left foot; M79.675 Pain in left toe(s); M79.674 Pain in right toe(s); M19.90 Unspecified osteoarthritis, unspecified site; M35.00 Sjogren syndrome, unspecified; M48.00 Spinal stenosis, site unspecified; M41.9 Scoliosis, unspecified; M66.9 Spontaneous rupture of unspecified tendon; Z68.41 Body mass index [BMI] 40.0-44.9, adult; Z86.14 Personal history of Methicillin resistant Staphylococcus aureus infection; Z79.84 Long term (current) use of oral hypoglycemic drugs; Z79.899 Other long term (current) drug therapy; Z98.890 Other specified postprocedural states; Z96.611 Presence of right artificial shoulder joint; Z96.612 Presence of left artificial shoulder joint ==

== ENCOUNTER → 2020-09-24 | Outpatient (CLI) | payer OTHER | LOC: HYPER 09:55 | PROVIDERS: ATTEND Emergency Medicine Emergency Medical Services | DX: E11.621 Type 2 diabetes mellitus with foot ulcer (principal); I83.015 Varicose veins of right lower extremity with ulcer other part of foot; L97.512 Non-pressure chronic ulcer of other part of right foot with fat layer exposed; L03.032 Cellulitis of left toe; L84 Corns and callosities; E11.43 Type 2 diabetes mellitus with diabetic autonomic (poly)neuropathy; E11.610 Type 2 diabetes mellitus with diabetic neuropathic arthropathy; E11.69 Type 2 diabetes mellitus with other specified complication; M86.9 Osteomyelitis, unspecified; B35.1 Tinea unguium; K21.9 Gastro-esophageal reflux disease without esophagitis; M21.372 Foot drop, left foot; M24.575 Contracture, left foot; M79.675 Pain in left toe(s); M79.674 Pain in right toe(s); M19.90 Unspecified osteoarthritis, unspecified site; M35.00 Sjogren syndrome, unspecified; M48.00 Spinal stenosis, site unspecified; M41.9 Scoliosis, unspecified; M66.9 Spontaneous rupture of unspecified tendon; Z68.41 Body mass index [BMI] 40.0-44.9, adult; Z86.14 Personal history of Methicillin resistant Staphylococcus aureus infection; Z79.84 Long term (current) use of oral hypoglycemic drugs; Z79.899 Other long term (current) drug therapy; Z98.890 Other specified postprocedural states; Z96.611 Presence of right artificial shoulder joint; Z96.612 Presence of left artificial shoulder joint ==

== ENCOUNTER → 2020-10-01 | Outpatient (CLI) | payer OTHER | LOC: HYPER 08:58 | PROVIDERS: ATTEND Emergency Medicine | DX: E11.621 Type 2 diabetes mellitus with foot ulcer (principal); I83.015 Varicose veins of right lower extremity with ulcer other part of foot; L97.512 Non-pressure chronic ulcer of other part of right foot with fat layer exposed; L03.032 Cellulitis of left toe; L84 Corns and callosities; E11.43 Type 2 diabetes mellitus with diabetic autonomic (poly)neuropathy; E11.610 Type 2 diabetes mellitus with diabetic neuropathic arthropathy; E11.69 Type 2 diabetes mellitus with other specified complication; M86.9 Osteomyelitis, unspecified; B35.1 Tinea unguium; K21.9 Gastro-esophageal reflux disease without esophagitis; M21.372 Foot drop, left foot; M24.575 Contracture, left foot; M79.675 Pain in left toe(s); M79.674 Pain in right toe(s); M19.90 Unspecified osteoarthritis, unspecified site; M35.00 Sjogren syndrome, unspecified; M48.00 Spinal stenosis, site unspecified; M41.9 Scoliosis, unspecified; M66.9 Spontaneous rupture of unspecified tendon; Z68.41 Body mass index [BMI] 40.0-44.9, adult; Z86.14 Personal history of Methicillin resistant Staphylococcus aureus infection; Z79.84 Long term (current) use of oral hypoglycemic drugs; Z79.899 Other long term (current) drug therapy; Z98.890 Other specified postprocedural states; Z96.611 Presence of right artificial shoulder joint; Z96.612 Presence of left artificial shoulder joint ==

== ENCOUNTER → 2020-10-08 | Outpatient (CLI) | payer OTHER | LOC: HYPER 13:24 | PROVIDERS: ATTEND Emergency Medicine | DX: E11.621 Type 2 diabetes mellitus with foot ulcer (principal); I83.015 Varicose veins of right lower extremity with ulcer other part of foot; L97.512 Non-pressure chronic ulcer of other part of right foot with fat layer exposed; L03.032 Cellulitis of left toe; L84 Corns and callosities; E11.43 Type 2 diabetes mellitus with diabetic autonomic (poly)neuropathy; E11.610 Type 2 diabetes mellitus with diabetic neuropathic arthropathy; E11.69 Type 2 diabetes mellitus with other specified complication; M86.9 Osteomyelitis, unspecified; B35.1 Tinea unguium; K21.9 Gastro-esophageal reflux disease without esophagitis; M21.372 Foot drop, left foot; M24.575 Contracture, left foot; M79.675 Pain in left toe(s); M79.674 Pain in right toe(s); M19.90 Unspecified osteoarthritis, unspecified site; M35.00 Sjogren syndrome, unspecified; M48.00 Spinal stenosis, site unspecified; M41.9 Scoliosis, unspecified; M66.9 Spontaneous rupture of unspecified tendon; Z68.41 Body mass index [BMI] 40.0-44.9, adult; Z86.14 Personal history of Methicillin resistant Staphylococcus aureus infection; Z79.84 Long term (current) use of oral hypoglycemic drugs; Z79.899 Other long term (current) drug therapy; Z98.890 Other specified postprocedural states; Z96.611 Presence of right artificial shoulder joint; Z96.612 Presence of left artificial shoulder joint ==

== ENCOUNTER → 2020-11-10 | Outpatient (CLI) | payer OTHER | LOC: SJCVC 13:13 | PROVIDERS: ATTEND Internal Medicine | DX: R94.31 Abnormal electrocardiogram [ECG] [EKG] (principal); I45.10 Unspecified right bundle-branch block; I10 Essential (primary) hypertension; E78.5 Hyperlipidemia, unspecified; M35.00 Sjogren syndrome, unspecified; E11.9 Type 2 diabetes mellitus without complications; M14.679 Charcot's joint, unspecified ankle and foot; J45.909 Unspecified asthma, uncomplicated; K21.9 Gastro-esophageal reflux disease without esophagitis; M19.90 Unspecified osteoarthritis, unspecified site; M86.8X4 Other osteomyelitis, hand; Z87.891 Personal history of nicotine dependence; Z72.89 Other problems related to lifestyle; Z79.899 Other long term (current) drug therapy; Z88.1 Allergy status to other antibiotic agents; Z88.0 Allergy status to penicillin; Z88.2 Allergy status to sulfonamides; Z88.8 Allergy status to other drugs, medicaments and biological substances; Z91.040 Latex allergy status ==

== ENCOUNTER → 2021-07-06 | Outpatient (CLI) | payer OTHER | LOC: HYPER 13:47 | PROVIDERS: ATTEND Emergency Medicine | DX: E11.621 Type 2 diabetes mellitus with foot ulcer (principal); I83.015 Varicose veins of right lower extremity with ulcer other part of foot; L97.512 Non-pressure chronic ulcer of other part of right foot with fat layer exposed; E11.43 Type 2 diabetes mellitus with diabetic autonomic (poly)neuropathy; E11.610 Type 2 diabetes mellitus with diabetic neuropathic arthropathy; E11.69 Type 2 diabetes mellitus with other specified complication; M86.9 Osteomyelitis, unspecified; M19.90 Unspecified osteoarthritis, unspecified site; M35.00 Sjogren syndrome, unspecified; M48.00 Spinal stenosis, site unspecified; M41.9 Scoliosis, unspecified; L84 Corns and callosities; M79.674 Pain in right toe(s); E66.9 Obesity, unspecified; Z87.891 Personal history of nicotine dependence; Z68.41 Body mass index [BMI] 40.0-44.9, adult; Z86.14 Personal history of Methicillin resistant Staphylococcus aureus infection; Z96.611 Presence of right artificial shoulder joint; Z96.612 Presence of left artificial shoulder joint; Z79.899 Other long term (current) drug therapy; Z90.49 Acquired absence of other specified parts of digestive tract; Z90.89 Acquired absence of other organs; Z98.49 Cataract extraction status, unspecified eye; Z90.710 Acquired absence of both cervix and uterus ==

== ENCOUNTER → 2021-07-20 | Outpatient (CLI) | payer OTHER | LOC: HYPER 10:38 | PROVIDERS: ATTEND Emergency Medicine | DX: E11.621 Type 2 diabetes mellitus with foot ulcer (principal); I83.015 Varicose veins of right lower extremity with ulcer other part of foot; L97.512 Non-pressure chronic ulcer of other part of right foot with fat layer exposed; E11.610 Type 2 diabetes mellitus with diabetic neuropathic arthropathy; E11.43 Type 2 diabetes mellitus with diabetic autonomic (poly)neuropathy; L84 Corns and callosities; R21 Rash and other nonspecific skin eruption; M79.674 Pain in right toe(s); M19.90 Unspecified osteoarthritis, unspecified site; M35.00 Sjogren syndrome, unspecified; M41.9 Scoliosis, unspecified; E66.9 Obesity, unspecified; Z68.41 Body mass index [BMI] 40.0-44.9, adult; Z96.611 Presence of right artificial shoulder joint; Z96.612 Presence of left artificial shoulder joint; Z87.891 Personal history of nicotine dependence; Z79.899 Other long term (current) drug therapy; Z79.84 Long term (current) use of oral hypoglycemic drugs ==

== ENCOUNTER → 2021-08-03 | Outpatient (CLI) | payer OTHER | LOC: HYPER 08:47 | PROVIDERS: ATTEND Emergency Medicine | DX: E11.621 Type 2 diabetes mellitus with foot ulcer (principal); I83.015 Varicose veins of right lower extremity with ulcer other part of foot; L97.512 Non-pressure chronic ulcer of other part of right foot with fat layer exposed; E11.610 Type 2 diabetes mellitus with diabetic neuropathic arthropathy; E11.43 Type 2 diabetes mellitus with diabetic autonomic (poly)neuropathy; L84 Corns and callosities; M79.674 Pain in right toe(s); M19.90 Unspecified osteoarthritis, unspecified site; M35.00 Sjogren syndrome, unspecified; M48.00 Spinal stenosis, site unspecified; M41.9 Scoliosis, unspecified; E66.9 Obesity, unspecified; Z68.41 Body mass index [BMI] 40.0-44.9, adult; Z87.891 Personal history of nicotine dependence; Z79.899 Other long term (current) drug therapy; Z79.84 Long term (current) use of oral hypoglycemic drugs; Z96.611 Presence of right artificial shoulder joint; Z96.612 Presence of left artificial shoulder joint ==

== ENCOUNTER → 2021-08-24 | Outpatient (CLI) | payer OTHER | LOC: HYPER 11:38 | PROVIDERS: ATTEND Emergency Medicine | DX: E11.621 Type 2 diabetes mellitus with foot ulcer (principal); I83.015 Varicose veins of right lower extremity with ulcer other part of foot; L97.512 Non-pressure chronic ulcer of other part of right foot with fat layer exposed; E11.69 Type 2 diabetes mellitus with other specified complication; M86.8X7 Other osteomyelitis, ankle and foot; E11.610 Type 2 diabetes mellitus with diabetic neuropathic arthropathy; L84 Corns and callosities; E11.43 Type 2 diabetes mellitus with diabetic autonomic (poly)neuropathy; M79.674 Pain in right toe(s); M19.90 Unspecified osteoarthritis, unspecified site; M35.00 Sjogren syndrome, unspecified; M48.00 Spinal stenosis, site unspecified; M41.9 Scoliosis, unspecified; E66.9 Obesity, unspecified; Z68.41 Body mass index [BMI] 40.0-44.9, adult; Z79.84 Long term (current) use of oral hypoglycemic drugs; Z79.899 Other long term (current) drug therapy; Z87.891 Personal history of nicotine dependence; Z96.611 Presence of right artificial shoulder joint; Z96.612 Presence of left artificial shoulder joint ==